=== PATIENT | male | born 1965 | race Caucasian/White ===

== ENCOUNTER 2020-05-28 12:00 | Outpatient (CLI) | payer OTHER, SELFPAY ==
--- NOTE | ~2020-05-28 | XR_ITS ---
EXAMINATION: XR chest 2V DATE: 05/28/2020 12:26 INDICATION: Cough TECHNIQUE: PA and lateral views of the chest were obtained. COMPARISON: Chest radiograph dated 09/12/2019 and 11/09/2018 FINDINGS: Slight progression of coarse reticular and subtle airspace opacities in the right mid to lower and le ft lower lung zones. Calcified nodule at the right costophrenic angle consistent with old granulomato us disease. No pneumothorax or pleural effusion. The cardiomediastinal silhouette is normal. Minimal scattered degenerative skeletal changes. IMPRESSION: 1. Continued increase in reticular and subtle airspace opacities in the right mid to lower and left l ower lung zones. Differential would include pneumonia either acute or chronic, atelectasis, mild pulm onary edema, chronic interstitial fibrosis or some combination thereof. Reviewed, dictated and finalized at location A. IMPRESSION: 1. Continued increase in reticular and subtle airspace opacities in the right m id to lower and left lower lung zones. Differential would include pneumonia eit her acute or chronic, atelectasis, mild pulmonary edema, chronic interstitial f ibrosis or some combination thereof.
== END 2020-05-28 12:01 | disposition home or self-care (01) ==
PROVIDERS: PCP Family Medicine; Visit Provider Family Medicine
DX: R05 Cough (principal); R91.8 Other nonspecific abnormal finding of lung field
CPT/HCPCS: 71046

== ENCOUNTER → 2021-01-19 13:07 | Outpatient (CLI) | payer OTHER, SELFPAY ==
--- NOTE | ~2021-01-19 | XR_ITS ---
XR hip LT min 2V DATE: 01/19/2021 13:17 INDICATION: Left hip pain TECHNIQUE: AP and lateral views COMPARISON: None FINDINGS: No fracture or dislocation, avascular necrosis or bone destruction is detected. The pubic s ymphysis and left sacroiliac joint appear intact. IMPRESSION: No significant abnormality Reviewed, dictated and finalized at location A. [employer] ASSISTANT IMPRESSION: No significant abnormality
== END ==
PROVIDERS: PCP Family Medicine; Visit Provider Family Medicine
DX: M25.552 Pain in left hip (principal)
CPT/HCPCS: 73502

== ENCOUNTER → 2021-02-17 09:53 | Outpatient (CLI) | payer OTHER, SELFPAY ==
--- NOTE | ~2021-02-17 | MR_ITS ---
EXAMINATION: MR hip LT wo con DATE: 02/17/2021 10:37 INDICATION: Left hip pain TECHNIQUE: Magnetic resonance imaging (MRI) of the left hip was performed without intravenous contra st. Sequences included full-field axial PD-weighted FS FSE and T1-weighted FSE, coronal of the pelvis with PD-weighted FS FSE, small field of view of the left hip with axial PD-weighted FS FSE, sagitta l PD-weighted FS FSE and coronal PD weighted FS FSE. Additional radial T1-weighted FGR oriented ortho gonal to the acetabular rim were obtained for evaluation of the labrum. COMPARISON: None FINDINGS: Bones/labrum/cartilage: Alignment is normal. No fracture. There is an expansile osteolytic mass measuring up to 6 cm in maxim al diameter with increased fluid signal and loss of T1 fat signal centered at the posterior left acet abulum extending into the base of the left ischial tuberosity. Thinned and in places likely absent co rtex involving the medial wall of the quadrilateral plate along the ilioischial line which is bowed i nwards but is not clearly profiled on the prior radiographs. Additional osteolysis and extension beyo nd the normal cortical margin at the anterolateral aspect of the ischial tuberosity. There is suggest ion of a couple additional lesions measuring approximately 1 cm lesion at the iliac side of the right sacroiliac joint and 1.3 cm at the subcapital right femur. There is mild left hip osteoarthritis wit h tear of the anterosuperior to posterior superior left acetabular labrum. Fluid: Symmetric physiologic amount of fluid within both hip joints. Soft tissues: Normal and symmetric muscle bulk and signal in the pelvis and visualized proximal thighs. The iliopso as, gluteal and proximal hamstring tendons are normal. Limited evaluation of visceral organs of the p manpreet is unremarkable. No pathologically enlarged pelvic/inguinal lymphadenopathy. IMPRESSION: 1. Several bone lesions suspicious for osseous metastatic disease, the largest at the posterior left acetabulum extending to the left ischium which appears lytic and is nearly indiscernible on the plain radiograph. 2. Mild left hip osteoarthritis with labral tear. Reviewed, dictated and finalized at location A. IMPRESSION: 1. Several bone lesions suspicious for osseous metastatic disease, the largest at the posterior left acetabulum extending to the left ischium which appears ly tic and is nearly indiscernible on the plain radiograph. 2. Mild left hip osteoarthritis with labral tear.
== END ==
PROVIDERS: Visit Provider Nurse Practitioner Family
DX: M16.12 Unilateral primary osteoarthritis, left hip (principal)
CPT/HCPCS: 73721

== ENCOUNTER 2021-02-24 13:31 | Outpatient (CLI) | payer OTHER, SELFPAY ==
--- NOTE | ~2021-02-24 | US_ITS ---
EXAMINATION: US renal BI EXAM DATE: 02/24/2021 14:02 INDICATION: Chronic kidney disease stage III. TECHNIQUE: Multiple grayscale and Doppler images of the kidneys were obtained (by a technologist who performed the scan) and subsequently reviewed. There is no prior study for comparison. FINDINGS: Right kidney: There is normal contour and echogenicity. It measures 13.8 x 8.1 x 9.4 centimeters. T here is large heterogeneous echogenicity predominantly solid renal mass measuring up to 13 cm. Moderate hydronephrosis. Left kidney: There is normal contour and echogenicity. It measures 11.0 x 6.5 x 7.4 centimeters. Th ere are no focal renal lesions identified. There is no hydronephrosis. Bladder unremarkable. IMPRESSION: 1. Large right renal mass; recommend CT abdomen pelvis, with contrast if able, to better evaluate re nal hilar vascular involvement. 2. Moderate right hydronephrosis. I discussed renal mass, recommendation with Iliaan Jackson PA-C at 02/24/2021 16:18 CDT. Reviewed, dictated and finalized at location A. IMPRESSION: 1. Large right renal mass; recommend CT abdomen pelvis, with contrast if able, to better evaluate renal hilar vascular involvement. 2. Moderate right hydronephrosis. I discussed renal mass, recommendation with Iliana Jackson PA-C at 02/24/2021 16:18 CDT.
== END 2021-02-24 13:32 | disposition home or self-care (01) ==
PROVIDERS: PCP Family Medicine; Visit Provider Physician Assistant
DX: N28.89 Other specified disorders of kidney and ureter (principal); N18.30 Chronic kidney disease, stage 3 unspecified; N13.30 Unspecified hydronephrosis
CPT/HCPCS: 76775

== ENCOUNTER → 2021-02-26 14:44 | Outpatient (CLI) | payer OTHER, SELFPAY ==
--- NOTE | ~2021-02-26 | CT_ITS ---
EXAMINATION: CT hip LT wo con DATE: 02/26/2021 15:18 INDICATION: Left hip pain. Left ischium mass. TECHNIQUE: Computed tomography (CT) of the left hip was performed without intravenous contrast. Autom ated exposure control and iterative reconstruction technique were employed. The dose-length product w as 170.57 mGy-cm. COMPARISON: Left hip MRI 02/17/2021 FINDINGS: Bone alignment is normal. No fracture. There is a 4.7 cm aggressive lytic lesion in left is chium and posterior acetabulum including relatively large areas of absent cortex. There is a 10 mm ly tic lesion in left inferior pubic ramus. There is mild left hip osteoarthritis. IMPRESSION: 1. Lytic lesions of bone, consistent with metastatic renal cell carcinoma. Reviewed, dictated and finalized at location A.
== END ==
PROVIDERS: Visit Provider Nurse Practitioner Family
DX: R22.42 Localized swelling, mass and lump, left lower limb (principal); M89.9 Disorder of bone, unspecified
CPT/HCPCS: 73700